=== PATIENT | male | born 1950 | race Caucasian/White ===

== ENCOUNTER 2017-01-18 19:01 | Inpatient (IN) ==
--- NOTE | 2017-01-18 19:12 | Emergency Department Note ---
Disposition Clinical Impression: Obesity (BMI 30-39.9), History of pulmonary embolism, History of DVT (deep vein thrombosis), Diabetes, Chest pain, Frail elderly, Congestive heart failure , Pleural effusion, Peripheral edema, Elevated d-dimer, Elevated INR, Leukopenia Disposition: Admitted As Inpatient Referrals: Paulina Morris CNP [Primary Care Provider] - General Adult HPI - General Stated complaint: Chest pain, WILL Time Seen by Provider: 01/18/17 19:11 - History of Present Illness HPI Narrative: 66-year-old male reports emergency department complaining of intermittent chest pain in the mid sternum radiates somewhat to the left over the last 3-4 days. The patient has no known history of coronary disease, he has had negative stress test in the past but never had a heart catheter. The patient has a history of esophageal cancer with resection remotely, as well as DVT and PE. The patient takes Coumadin on a regular basis. There is no history of bleeding or trauma. No coughing up blood or acute leg swelling or pain. The patient states he wears oxygen regularly, his reports he has been diagnosed with COPD. There is no history of cough and general runny nose or pain or sore throat. No abdominal pain vomiting or diarrhea. There is no history of tearing or acute back pain or syncope. The patient has had no rash on the chest or injury. The patient has not had a cholecystectomy but used to have reflux. He denies any reflux symptoms. The patient is worried about his heart. The pain is recurrent and is dull. There is no history of bleeding. - Related Data Home Medications Medication Instructions Recorded Confirmed Ascorbate Calcium [Vitamin C] 1,000 mg PO DAILY 09/19/16 09/19/16 Aspirin [Ecotrin] 325 mg PO DAILY 09/19/16 09/19/16 Cholecalciferol (D-3) [Vitamin D] 2,000 unit PO DAILY 09/19/16 09/19/16 Furosemide [Lasix] 40 mg PO TID 09/19/16 09/19/16 Gabapentin 600 mg PO HS 09/19/16 09/19/16 Gabapentin 900 mg PO BID 09/19/16 09/19/16 Garlic [Garlique] 2,000 mcg PO TID 09/19/16 09/19/16 Glimepiride 4 mg PO TID 09/19/16 09/19/16 Glucosamn/[place]n/C/Mn/[place] 1 tab PO TID 09/19/16 09/19/16 [Cvs Glucosamine Chondroit Cplt] Multivit-Min/FA/Lycopen/Lutein 1 tab PO DAILY 09/19/16 09/19/16 [Men 50 Plus Multivitamin Tab] Pantoprazole Sodium [Protonix] 40 mg PO DAILY 09/19/16 09/19/16 Potassium Chloride [Klor-Con 10 meq PO DAILY 09/19/16 09/19/16 Sprinkle] Pravastatin Sodium 40 mg PO DAILY 09/19/16 09/19/16 Ranitidine HCl [Acid [employer]] 150 mg PO HS 09/19/16 09/19/16 Vitamin A 8,000 unit PO DAILY 09/19/16 09/19/16 Warfarin [Coumadin] 5 mg PO DAILY 09/19/16 09/19/16 Previous Rx's Medication Instructions Recorded Doxycycline 100 mg PO BID #6 capsule 09/21/16 Oxygen 1 each .ROUTE AD 30 Days 09/21/16 Allergies Allergy/AdvReac Type Severity Reaction Status Date / Time penicillin G Allergy Anaphylaxis Verified 09/19/16 14:33 All systems ED: reviewed and negative except as stated. Past Medical History - Past Medical History Medical history: Reports: cancer, CHF, diabetes Surgical history: Reports: IVC Filter, orthopedic, other (spine), other ( esophageal ) Psychiatric history: Reports: no psych history - Social History Smoking Status: Former smoker Smokeless Tobacco Status: No Alcohol use: Reports: none Drug use: Reports: none Physical Exam - General Limitations: no limitations General appearance: alert, in no apparent distress - Head Head exam: atraumatic, normocephalic, normal inspection - Eye Eye exam: Present: normal appearance, PERRL, EOMI - ENT ENT exam: normal exam, normal oropharynx, mucous membranes moist, TM's normal bilaterally, normal external ear exam - Neck Neck exam: Present: normal inspection, full ROM, trachea midline. Absent: tenderness - Chest Chest inspection: Present: symmetric chest wall rise. Absent: tenderness - Respiratory Respiratory exam: Present: normal lung sounds bilaterally. Absent: respiratory distress - Cardiovascular Cardiovascular exam: Present: regular rate, normal rhythm, normal heart sounds - Abdominal Exam Abdominal exam: Present: soft, Non-Tender, normal bowel sounds. Absent: tenderness, distention, guarding, rebound, rigidity, pulsatile mass - Extremities Exam Extremities exam: Present: normal inspection, full ROM, normal capillary refill , pedal edema, joint swelling. Absent: tenderness, calf tenderness - Expanded Lower Extremity Exam Lower leg exam: Absent: Homans' sign Neurovascular/Tendon exam: Present: normal capillary refill. Absent: motor deficit, sensory deficit, tendon deficit, extremity cold to touch, pallor - Back Exam Back exam: Present: normal inspection, full ROM. Absent: tenderness, CVA tenderness (R), CVA tenderness (L), vertebral tenderness - Neurological Exam Neurological exam: Present: alert, oriented X3, CN II-XII intact. Absent: motor sensory deficit - Psychiatric Psychiatric exam: Present: normal affect, normal mood - Skin Skin exam: Present: warm, dry, intact, normal color. Absent: rash, diaphoresis , erythema, pallor, mottled Course Vital Signs Temperature 98.1 F 01/18/17 19:45 Pulse Rate 73 01/18/17 19:45 Respiratory Rate 15 01/18/17 19:45 Blood Pressure 146/75 01/18/17 19:45 O2 Sat by Pulse Oximetry 97 01/18/17 19:45 Temperature 98.1 F 01/18/17 19:45 Pulse Rate 73 01/18/17 19:45 Respiratory Rate 15 01/18/17 19:45 Blood Pressure 146/75 01/18/17 19:45 O2 Sat by Pulse Oximetry 99 01/18/17 19:49 Oxygen Delivery Oxygen Delivery Nasal Cannula Medical Decision Making - [facility] Narrative Medical decision making narrative: The patient is elderly, diabetic, and is experiencing chest pain. He also has a history of esophageal malignancy and PE. The patient is anticoagulated. He does have an elevated d-dimer. He was given aspirin in the ED. The patient has bilateral pleural effusions and appears to be in CHF. Based on the patient' s chest pain, bilateral pleural effusions, lower extremity edema, history of malignancy, diabetes, age, apparent acute CHF, I started the appropriate to admit the patient in the hospital. I discussed the case with the hospitalist on -call who is accepted the patient to their care. We both feel be reasonable to CT the patient's chest for further evaluation regarding potential failed Coumadin therapy and thrombus or other acute intrathoracic pathology and to define the pulmonary findings on chest x-ray. Do not suspect pneumonitis or sepsis at this time. The patient is currently stable pending admission. - Lab Data Lab results reviewed: Yes I reviewed the patient's lab results. Result diagrams: 01/18/17 20:41 01/18/17 20:41 Lab Results 01/18/17 01/18/17 01/18/17 Range/Units 20:41 20:41 20:41 WBC (4.3-11.1) K/mcL RBC (4.19-5.50) M/mcL Hgb (12.9-16.9) g/dL Hct (37.5-50.1) % MCV (83.0-100.0) fL MCH (28.0-33.3) pg MCHC (31.6-35.5) g/dL RDW (11.5-14.5) % Plt Count (140-400) K/mcL MPV (9.4-12.4) fL Immature Gran % (0-4) % Seg Neutrophils % % Lymphocytes % % Monocytes % % Eosinophils % % Basophils % % Neutrophils # (1.6-8.9) K/mcL Lymphocytes # (0.6-4.6) K/mcL Monocytes # (0.0-1.3) K/mcL Eosinophils # (0.0-0.6) K/mcL Basophils # (0.0-0.2) K/mcL PT 33.6 H (9.4-12.1) Seconds INR 3.0 APTT 50.3 H (26.0-36.0) Seconds D-Dimer 914 H (0-500) ng/mLFEU Sodium (136-145) mEq/L Potassium (3.5-4.5) mEq/L Chloride (98-109) mEq/L Carbon Dioxide (19-29) mEq/L BUN (8-26) mg/dL Creatinine (0.72-1.25) mg/dL Est GFR ( Amer) (> 60) Est GFR (Non-Af Amer) (> 60) BUN/Creatinine Ratio (6-26) Glucose (70-99) mg/dL Calculated Osmolality (280-300) Lactic Acid 0.5 (0.5-2.2) mmol/L Calcium (8.6-10.8) mg/dL Total Bilirubin 0.5 (0.2-1.2) mg/dL Direct Bilirubin 0.3 (0.0-0.5) mg/dL Indirect Bilirubin 0.2 (0.0-1.2) mg/dL AST 13 (5-34) Units/L ALT 10 (0-55) Units/L Alkaline Phosphatase 69 (38-126) Units/L Troponin I (0-0.03) ng/mL C-Reactive Protein 139 H (Less than 5) mg/L B-Natriuretic Peptide (0-100) pg/mL Serum Total Protein 6.2 (6.0-8.3) g/dL Albumin 2.4 L (3.5-5.0) g/dL Globulin 3.8 H (2.4-3.5) g/dL Albumin/Globulin Ratio 0.6 L (1.1-2.2) Lipase 27 (8-78) Units/L 01/18/17 01/18/17 01/18/17 Range/Units 20:41 20:41 20:41 WBC 3.7 L (4.3-11.1) K/mcL RBC 4.86 (4.19-5.50) M/mcL Hgb 13.4 (12.9-16.9) g/dL Hct 42.4 (37.5-50.1) % MCV 87.2 (83.0-100.0) fL MCH 27.6 L (28.0-33.3) pg MCHC 31.6 (31.6-35.5) g/dL RDW 15.9 H (11.5-14.5) % Plt Count 169 (140-400) K/mcL MPV 10.2 (9.4-12.4) fL Immature Gran % 0.0 (0-4) % Seg Neutrophils % 76.2 % Lymphocytes % 8.4 % Monocytes % 7.8 % Eosinophils % 7.3 % Basophils % 0.3 % Neutrophils # 2.8 (1.6-8.9) K/mcL Lymphocytes # 0.3 L (0.6-4.6) K/mcL Monocytes # 0.3 (0.0-1.3) K/mcL Eosinophils # 0.3 (0.0-0.6) K/mcL Basophils # 0.0 (0.0-0.2) K/mcL PT (9.4-12.1) Seconds INR APTT (26.0-36.0) Seconds D-Dimer (0-500) ng/mLFEU Sodium 136 (136-145) mEq/L Potassium 4.5 (3.5-4.5) mEq/L Chloride 104 (98-109) mEq/L Carbon Dioxide 25 (19-29) mEq/L BUN 13 (8-26) mg/dL Creatinine 0.80 (0.72-1.25) mg/dL Est GFR ( Amer) > 60 (> 60) Est GFR (Non-Af Amer) > 60 (> 60) BUN/Creatinine Ratio 16 (6-26) Glucose 155 H (70-99) mg/dL Calculated Osmolality 285 (280-300) Lactic Acid (0.5-2.2) mmol/L Calcium 8.7 (8.6-10.8) mg/dL Total Bilirubin (0.2-1.2) mg/dL Direct Bilirubin (0.0-0.5) mg/dL Indirect Bilirubin (0.0-1.2) mg/dL AST (5-34) Units/L ALT (0-55) Units/L Alkaline Phosphatase (38-126) Units/L Troponin I (0-0.03) ng/mL C-Reactive Protein (Less than 5) mg/L B-Natriuretic Peptide 581 H (0-100) pg/mL Serum Total Protein (6.0-8.3) g/dL Albumin (3.5-5.0) g/dL Globulin (2.4-3.5) g/dL Albumin/Globulin Ratio (1.1-2.2) Lipase (8-78) Units/L 01/18/17 Range/Units 20:41 WBC (4.3-11.1) K/mcL RBC (4.19-5.50) M/mcL Hgb (12.9-16.9) g/dL Hct (37.5-50.1) % MCV (83.0-100.0) fL MCH (28.0-33.3) pg MCHC (31.6-35.5) g/dL RDW (11.5-14.5) % Plt Count (140-400) K/mcL MPV (9.4-12.4) fL Immature Gran % (0-4) % Seg Neutrophils % % Lymphocytes % % Monocytes % % Eosinophils % % Basophils % % Neutrophils # (1.6-8.9) K/mcL Lymphocytes # (0.6-4.6) K/mcL Monocytes # (0.0-1.3) K/mcL Eosinophils # (0.0-0.6) K/mcL Basophils # (0.0-0.2) K/mcL PT (9.4-12.1) Seconds INR APTT (26.0-36.0) Seconds D-Dimer (0-500) ng/mLFEU Sodium (136-145) mEq/L Potassium (3.5-4.5) mEq/L Chloride (98-109) mEq/L Carbon Dioxide (19-29) mEq/L BUN (8-26) mg/dL Creatinine (0.72-1.25) mg/dL Est GFR ( Amer) (> 60) Est GFR (Non-Af Amer) (> 60) BUN/Creatinine Ratio (6-26) Glucose (70-99) mg/dL Calculated Osmolality (280-300) Lactic Acid (0.5-2.2) mmol/L Calcium (8.6-10.8) mg/dL Total Bilirubin (0.2-1.2) mg/dL Direct Bilirubin (0.0-0.5) mg/dL Indirect Bilirubin (0.0-1.2) mg/dL AST (5-34) Units/L ALT (0-55) Units/L Alkaline Phosphatase (38-126) Units/L Troponin I 0.02 (0-0.03) ng/mL C-Reactive Protein (Less than 5) mg/L B-Natriuretic Peptide (0-100) pg/mL Serum Total Protein (6.0-8.3) g/dL Albumin (3.5-5.0) g/dL Globulin (2.4-3.5) g/dL Albumin/Globulin Ratio (1.1-2.2) Lipase (8-78) Units/L - Radiology Data Radiology results reviewed: Yes I reviewed the patient's radiology results.
[2017-01-18] MEDS ORDERED: Aspirin 325 MG TABLET PO ONE (19:25)
[2017-01-18 21:01] LABS: Basophils % 0.3 %; Eosinophils # 0.3 K/mcL (0.0-0.6); Eosinophils % 7.3 %; Hematocrit 42.4 % (37.5-50.1); Hemoglobin 13.4 g/dL (12.9-16.9); Lymphocytes # 0.3 K/mcL (0.6-4.6); Lymphocytes % 8.4 %; Mean Corpuscular HGB Conc 31.6 g/dL (31.6-35.5); Mean Corpuscular Hemoglobin 27.6 pg (28.0-33.3); Mean Corpuscular Volume 87.2 fL (83.0-100.0); Mean Platelet Volume 10.2 fL (9.4-12.4); Monocytes # 0.3 K/mcL (0.0-1.3); Monocytes % 7.8 %; Neutrophils # 2.8 K/mcL (1.6-8.9); Platelet Count 169 K/mcL (140-400); Red Blood Count 4.86 M/mcL (4.19-5.50); Red Cell Distribution Width 15.9 % (11.5-14.5); Segmented Neutrophils % 76.2 %
[2017-01-18 21:09] LABS: Prothrombin Time 33.6 Seconds (9.4-12.1)
[2017-01-18 21:12] LABS: Activated Partial Thrombo Time 50.3 Seconds (26.0-36.0)
[2017-01-18 21:14] LABS: BUN/Creatinine Ratio 16 (6-26); Blood Urea Nitrogen 13 mg/dL (8-26); Calcium 8.7 mg/dL (8.6-10.8); Carbon Dioxide 25 mEq/L (19-29); Chloride 104 mEq/L (98-109); Glucose 155 mg/dL (70-99); Osmolality,Calculated 285 (280-300); Potassium 4.5 mEq/L (3.5-4.5); Sodium 136 mEq/L (136-145); eGFR For African Americans > 60 (> 60); eGFR For Non-African Americans > 60 (> 60)
[2017-01-18 21:15] LABS: Albumin 2.4 g/dL (3.5-5.0); Albumin/Globulin Ratio 0.6 (1.1-2.2); Bilirubin,Direct 0.3 mg/dL (0.0-0.5); Bilirubin,Indirect 0.2 mg/dL (0.0-1.2); Bilirubin,Total 0.5 mg/dL (0.2-1.2); Globulin 3.8 g/dL (2.4-3.5); Total Protein 6.2 g/dL (6.0-8.3)
[2017-01-18] MEDS ORDERED: Acetaminophen 325 MG TABLET PO PRN (22:44)
[2017-01-18] MEDS ORDERED: Naloxone 0.4 MG/ML INJ IVP PRN (22:44)
[2017-01-18] MEDS ORDERED: Ondansetron 4 MG/2 ML VIAL IVP PRN (22:44)
[2017-01-18] MEDS ORDERED: Dextrose Gel 15 GM PO PRN ×2 (23:47)
[2017-01-18] MEDS ORDERED: *HR* Dextrose 50 % in Water (Syg) 50 ML SYRINGE IVP PRN (23:47)
[2017-01-18] MEDS ORDERED: D5% in Water 1,000 ML IVC PRN (23:47)
--- NOTE | 2017-01-18 23:47 | Internal Med History&Physical ---
<Analilia Garcia - Last Filed: 01/19/17 00:10> Date of Encounter: 01/19/17 Time of Encounter: 23:46 Assessment and Plan (1) Acute exacerbation of CHF (congestive heart failure) Current visit: Yes Status: Acute 1 patient's last echo September 2016 EF 65% with moderate diastolic dysfunction moderate mitral stenosis. Patient has not been taking his Lasix for the past 2 weeks. He has lower extremity edema shortness of breath requiring oxygen supplementation chest x-ray indicative of pulmonary edema. We will give IV Lasix 1 now and repeat in a.m. 2 we will monitor intake and output daily weights 3 fluid restrictions 1500 mL's 4 low sodium diet Qualifiers: Congestive heart failure type: diastolic Qualified Code(s): I50.33 - Acute on chronic diastolic (congestive) heart failure (2) Chest pain Current visit: Yes Status: Acute 1 patient has been experiencing intermittent chest pain for the past week. I suspect related to patient's CHF. We will cycle cardiac troponins 2 continuous cardiac monitoring 3 nitroglycerin as needed for chest pain 4 oxygen as needed 5 consult cardiology as needed have patient follow-up as outpatient 6 continue with aspirin and statin beta rhoda Qualifiers: Chest pain type: unspecified Qualified Code(s): R07.9 - Chest pain, unspecified (3) Diabetes Current visit: Yes Status: Acute 1 patient's on oral antidiabetics at home will hold for now Accu-Cheks before meals at bedtime for sinus scale insulin goal is to maintain postprandial less than 180 2 diabetic diet Qualifiers: Diabetes mellitus type: type 2 Diabetes mellitus complication status: without complication Diabetes mellitus senior living insulin use: without senior living use Qualified Code(s): E11.9 - Type 2 diabetes mellitus without complications (4) History of pulmonary embolism Current visit: Yes Status: Acute 1 patient has history of pulmonary emboli as well as DVT we will continue with Coumadin monitor INR daily bolus to maintain INR 2-3 (5) DVT prophylaxis Current visit: Yes Status: Acute 1 patient is on Coumadin he has a past history of DVT/PE as well as hx malignancy which places him at high risk for DVT development Internal Medicine - H&P: HPI Chief complaint: CP Admitted From: Emergency Dept Plans for Post Hospital Care: Home History of present illness: Mr. Garcia is a 66 year old male past medical history of pulmonary embolism and DVT CHF diabetes esophageal cancer. Patient has been experiencing intermittent dull chest pain midsternally nonradiating over the past week. He denies any associated symptoms of shortness of breath nausea vomiting or lightheadedness diaphoresis Pain is exacerbated by deep breathing and has been relieved with nitroglycerin. He was seen at [facility] on Monday had a workup in the ER which was negative. He did have a cardiac stress in 2013 which was negative. He also has a history of esophageal cancer undergoing radiation with esophagotomy in 2013. He has a history of DVT and PE. He is on Coumadin which he takes regular basis and monitors his INR. He does wear oxygen at home 2 L nasal cannula as needed however recently he has required continuous use due to increasing shortness of breath. He denies any fever chills nausea vomiting or diarrhea. He denies any recent weight loss or weight gain he states he does not have any swelling in his lower extremities however he wraps his legs with Nick bandages daily which he states decreases his swelling. He presented to the ER but complaints. According to ER records lab work revealed BNP of 581 CRP 139 d-dimer 914 INR is 3. Troponin was negative. Chest x-ray suggestive of pulmonary edema possible CHF. Due to the patient's past history of PE CTA was obtained which was negative for PE however did reveal some slight pleural effusion as well as O pace of these which could represent pulmonary edema versus pneumonia. Patient has been referred for further evaluation. Presently on exam patient does appear to be in some mild respiratory distress. He has conversational dyspnea oxygen saturation drops down to 8788 on exertion. Upon auscultation the patient has scattered crackles bilaterally heart sounds S1-S2 with no rub murmur gallops or clicks noted. He has lower extremity +1 edema bilaterally. 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 He is hemodynamically stable at this time. I reviewed this case with who agrees with plan Past Med Surg Social Fam HX - Past Medical History Medical history: cancer, CHF, diabetes Psychiatric history: no psych history - Past Surgical History Surgical History: IVC Filter, orthopedic, other (spine), other (esophageal ) - Social History Smoking Status: Former smoker Smokeless Tobacco Status: No Alcohol use: none Drug use: none - Family History Mother Hx Family Cardiac Disorders: Yes Internal Medicine - H&P: Meds Ascorbate Calcium [Vitamin C] 1,000 mg PO DAILY 09/19/16 [History] Aspirin [Ecotrin] 325 mg PO DAILY 09/19/16 [History] Cholecalciferol (D-3) [Vitamin D] 2,000 unit PO DAILY 09/19/16 [History] Gabapentin 600 mg PO QID 09/19/16 [History] Garlic [Garlique] 2,000 mcg PO TID 09/19/16 [History] Glimepiride 4 mg PO TID 09/19/16 [History] Glucosamn/Cond[place]n/C/Mn/[place] [Cvs Glucosamine Chondroit Cplt] 1 tab PO TID 02/28 [History] Multivit-Min/FA/Lycopen/Lutein [Men 50 Plus Multivitamin Tab] 1 tab PO DAILY 02/28 [History] Pantoprazole Sodium [Protonix] 40 mg PO DAILY 09/19/16 [History] Potassium Chloride [Klor-Con Sprinkle] 10 meq PO DAILY 09/19/16 [History] Pravastatin Sodium 40 mg PO HS 09/19/16 [History] Ranitidine HCl [Acid [employer]] 300 mg PO HS 09/19/16 [History] Vitamin A 8,000 unit PO DAILY 09/19/16 [History] Oxygen 3 l NS AD 01/18/17 [History] Allergies penicillin G Allergy (Verified 09/19/16 14:33) Anaphylaxis All Systems PM: A 10-system review of systems was performed and is negative for pertinent findings except as documented above in the HPI. - Constitutional Constitutional: no chills, no fever(s), no night sweats - Cardiovascular Cardiovascular ROS IM: chest pain, dyspnea on exertion - Respiratory Respiratory: dyspnea on exertion, wheezing - Gastrointestinal Gastrointestinal: no abdominal pain, no diarrhea, no hematemesis, no hematochezia, no melena, no nausea, no vomiting - Musculoskeletal Musculoskeletal ROS IM: no numbness, no tingling - Integumentary Integumentary IM: no rash, no unusual bruising - Neurological Neurological ROS: no confusion, no convulsions, no focal weakness, no numbness, no tingling, no tremor(s) - Hematologic/Lymphatic Hematologic/Lymphatic: no easy bruising - Constitutional Vitals: Temp Pulse Resp BP Pulse Ox 98 F 77 16 146/75 95 01/18/17 23:04 01/18/17 21:53 01/18/17 23:04 01/18/17 23:04 01/18/17 21:53 General appearance: Present: A&O X 3, answers questions appropriately - Head Head exam: Present: atraumatic, normocephalic - Eye Eye exam: Present: PERRL, conjuntiva pink, sclera anicteric Pupils: Present: PERRL - Respiratory Respiratory exam: Absent: accessory muscle use, rales, rhonchi, wheezes Additional comments: Scattered crackles bilaterally conversational dyspnea - Cardiovascular Cardiovascular exam: Present: RRR, +S1, +S2. Absent: diastolic murmur, gallop, rubs, systolic murmur - GI/Abdominal GI/Abdominal exam: Present: normal bowel sounds, soft, no peritoneal signs. Absent: distended, tenderness - Extremities Exam Extremities exam: Present: pedal edema, warm, radial pulses palpable and symetrical. Absent: calf tenderness, cyanotic - Neurological Exam Neurological exam: Present: CN II-XII intact, oriented X3, no focal deficits. Absent: pronater drift, facial droop, speech deficit - Skin Skin exam: Present: dry, intact Internal Med - H&P Results - Labs CBC & Chem 7: 01/18/17 20:41 01/18/17 20:41 - EKG Data EKG shows normal: sinus rhythm - EKG Data Prior EKG available for review: yes When compared to previous EKG: there is no significant change EKG comments: 01/19/17 00:02 Sinus rhythm with right bundle branch block no change from previous EKG. Reviewed with - Diagnostic Studies Other Images Additional comments: Chest X-Ray 01/18/17 19:14 IMPRESSION: Findings suggest pulmonary edema with bilateral pleural effusions possibly representing congestive heart failure D/ / Hesham Funk MD / Hesham Funk MD Interpreting Provider: Hesham Funk MD Chest CTA 01/18/17 21:37 IMPRESSION: 1. No evidence of pulmonary embolic disease. 2. Trace bilateral pleural effusions with peribronchial and patchy ground-glass opacifications throughout the lungs. The findings are nonspecific but could be related to pulmonary edema or infection. 3. Progression of mediastinal adenopathy. Although worrisome for metastatic adenopathy, reactive adenopathy is not excluded. Close follow-up recommended. 4. Enlarged main pulmonary artery which can be seen with pulmonary hypertension. D/ : / 01/18/2017 22:49:47 Los Chase MD / leonardo Interpreting Provider: Los Chase MD <Jt Mehta - Last Filed: 01/19/17 01:48> Date of Encounter: 01/19/17 - Constitutional Vitals: Temp Pulse Resp BP Pulse Ox 98.4 F 87 20 146/66 92 01/19/17 00:41 01/19/17 00:41 01/19/17 00:41 01/19/17 00:41 01/19/17 00:41 General appearance: Present: A&O X 3, no acute distress - Head Head exam: Present: atraumatic, normal inspection - Neck Neck exam general surgery: Present: full ROM, normal inspection, supple. Absent : tenderness - Expanded Neck Exam Neck exam: Absent: carotid bruit - Respiratory Respiratory exam: Present: rales. Absent: chest wall tenderness, respiratory distress, rhonchi, wheezes - Cardiovascular Cardiovascular exam: Present: RRR, +S1, +S2. Absent: systolic murmur - GI/Abdominal GI/Abdominal exam: Present: soft. Absent: tenderness - Extremities Exam Extremities exam: Present: pedal edema. Absent: calf tenderness Internal Med - H&P Results - Labs CBC & Chem 7: 01/18/17 20:41 01/18/17 20:41 - EKG Data -: EKG Interpreted by Myself EKG shows normal: sinus rhythm - EKG Data When compared to previous EKG: there is no significant change - Diagnostic Studies Chest x-ray Status: image reviewed by me (suggests CHF) - Attending Attestation I discussed the patient [place], PMH, ROS, lab data, and exam findings with Analilia Garcia CNP. I then saw and examined patient independently as well. On exam and history, he has findings consistent with CHF. 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 He was taking Lasix TID. He has no PE on CTA. He follows with his oncologist every three months in [place]. He takes his Coumadin and monitors his INR closely with his PCP. However, he does not know the current dose of Coumadin he is taking, and it is not listed in his medication reconciliation. I will start him on low dose and monitor INR closely. Other than my comments noted above and noted exam findings , I agree with Analilia's assessment and plan.
[2017-01-19] MEDS: Furosemide 20 MG/2 ML VIAL IVP SCH ×3 (00:10→17:16)
[2017-01-19 03:56] LABS: INR 3.4; Prothrombin Time 38.2 Seconds (9.4-12.1)
[2017-01-19 04:00] LABS: BUN/Creatinine Ratio 15 (6-26); Blood Urea Nitrogen 12 mg/dL (8-26); Calcium 8.7 mg/dL (8.6-10.8); Carbon Dioxide 23 mEq/L (19-29); Chloride 102 mEq/L (98-109); Glucose 128 mg/dL (70-99); Osmolality,Calculated 285 (280-300); Potassium 4.3 mEq/L (3.5-4.5); Sodium 137 mEq/L (136-145); eGFR For African Americans > 60 (> 60); eGFR For Non-African Americans > 60 (> 60)
[2017-01-19] MEDS: Insulin LISPRO 300 UNITS/3 ML VIAL SQ SCH ×4 (08:40→21:15)
[2017-01-19] MEDS: Ascorbic Acid 500 MG TABLET PO SCH (08:40)
[2017-01-19] MEDS: Gabapentin 300 MG CAPSULE PO SCH ×4 (08:41→21:18)
[2017-01-19] MEDS: Aspirin Enteric Coated 325 MG Tablet PO SCH (08:41)
[2017-01-19] MEDS: Cholecalciferol (D-3) 1,000 UNIT TABLET PO SCH (08:41)
--- NOTE | 2017-01-19 08:46 | Internal Med Progress Note ---
Date of Encounter: 01/19/17 Time of Encounter: 08:43 - Assessment and plan (1) Congestive heart failure Status: Acute Assessment and plan: Patient has known history of diastolic CHF and presents with worsening hypoxia, exertional dyspnea and pedal edema. We will increase dose of IV Lasix twice daily and continue fluid restriction, daily weights and strict intake/urine output monitoring. Continue supportive care and supplemental oxygen as needed. Patient is noted to be on home oxygen at 2 L/m via nasal cannula. Patient also reports intermittent transient episodes of retrosternal chest pain with relief from nitroglycerin. Telemetry and EKG show no changes so far, serial troponins are negative for ACS. Continue when necessary transdermal nitroglycerin. We will follow up echocardiogram and consult cardiology for further recommendations. Qualifiers: Congestive heart failure type: diastolic Congestive heart failure chronicity: acute on chronic Qualified Code(s): I50.33 - Acute on chronic diastolic (congestive) heart failure (2) Esophageal cancer Status: Chronic Assessment and plan: Follows with oncology as outpatient. Underwent surgery and radiation. Qualifiers: Malignant neoplasm of esophagus location: unspecified location Qualified Code(s): C15.9 - Malignant neoplasm of esophagus, unspecified (3) Obesity Status: Chronic Qualifiers: Obesity type: due to excess calories Obesity severity: non-morbid Qualified Code(s): E66.09 - Other obesity due to excess calories (4) Diabetes Status: Chronic Assessment and plan: Continue Accu-Chek blood glucose monitoring with sliding scale insulin. Diabetic diet. Blood sugars noted to be well controlled. 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 INR is noted to be 3.4, will hold Coumadin tonight. (7) History of pulmonary embolism Status: Chronic - Subjective Interval history: Improving shortness of breath. Has been having intermittent retrosternal chest pain, not at this time. No nausea, vomiting, leg swelling. Patient reports being noncompliant with his Lasix as he feels it is a high dose and is making him urinate too much. - Constitutional Vitals: Temp Pulse Resp BP Pulse Ox 98.7 F 78 16 126/70 95 01/19/17 07:00 01/19/17 07:00 01/19/17 07:00 01/19/17 07:00 01/19/17 07:00 General appearance: Present: A&O X 3, obese, answers questions appropriately - Respiratory Respiratory exam: Present: rales (Bibasal crackles, inspiratory). Absent: accessory muscle use, rhonchi, wheezes - Cardiovascular Cardiovascular exam: Present: RRR, +S1, +S2. Absent: diastolic murmur, gallop, rubs, systolic murmur - GI/Abdominal GI/Abdominal exam: Present: normal bowel sounds, soft (obese), no peritoneal signs. Absent: distended, tenderness - Extremities Exam Extremities exam: Present: normal inspection (B/L anterior leg stasis dermatitis ), warm, radial pulses palpable and symetrical. Absent: calf tenderness, cyanotic, pedal edema Internal Medicine: Result - Labs CBC & Chem 7: 01/18/17 20:41 01/21/17 05:19 Labs: BMP 01/19/17 03:44 Sodium 137 Potassium 4.3 Chloride 102 Carbon Dioxide 23 BUN 12 Creatinine 0.82 Glucose 128 H Calcium 8.7 Cardiac Enzymes 01/19/17 Range/Units 03:44 Troponin I 0.03 (0-0.03) ng/mL - ABG Interpretation ABG results: PT/INR, D-dimer PT 38.2 Seconds (9.4-12.1) H 01/19/17 03:44 D-Dimer 914 ng/mLFEU (0-500) H 01/18/17 20:41 Consult Discharge Plan - Plan Referrals: Paulina Morris CNP [Primary Care Provider] - (Web request 01/18/17) Prescriptions: Nitroglycerin 0.4 mg SL Q5MIN PRN #30 tab.subl PRN Reason: Chest Pain Ipratropium/Albuterol Neb [Duoneb] 3 ml IH [id number] PRN 30 Days PRN Reason: wheezing Furosemide [Lasix] 20 mg PO BIDDIURETIC #60 tablet Isosorbide MONOnitrate (24 HR) [Imdur] 30 mg PO DAILY #30 tab.er.24h Metoprolol XL (24 HR) Succ [Toprol Xl] 25 mg PO DAILY #30 tab.er.24h
[2017-01-19] MEDS ORDERED: VITAMIN A 8,000 UNITS PO SCH (09:00)
[2017-01-19] MEDS ORDERED: Furosemide 20 MG/2 ML VIAL IVP SCH (09:00)
[2017-01-19] MEDS ORDERED: GARLIQUE PO SCH (09:00)
--- NOTE | 2017-01-19 13:32 | Electrocardiograph Report ---
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
--- NOTE | 2017-01-19 15:02 | Cardiology Consult Note ---
Date of Encounter: 01/19/17 Time of Encounter: 14:30 Assessment and Plan (1) Acute exacerbation of CHF (congestive heart failure) Current Visit: Yes Status: Acute Patient admits that he abruptly stopped taking Lasix 40mg TID Currently patient's fluid status is -950mL Most recent ECHO 09/30 LVEF 65%, mild concentric LVH, moderate LV diastolic dysfunction, normal RV structure and function, moderate-severely dilated LA, moderate-severe mitral annular calcification, moderate mitral stenosis, mean gradient = 7mmHg, mild pulmonary HTN, estimated RSVP = 42mmHg CXR and CTA with evidence of pulmonary edema Plan: Agree with treatment per primary team Continue Lasix 20mg IV q12, fluid restriction, daily weight, low-salt diet Qualifiers: Congestive heart failure type: diastolic Qualified Code(s): I50.33 - Acute on chronic diastolic (congestive) heart failure (2) Chest pain Current Visit: Yes Status: Acute Patient presents with intermittent chest pain x 4 days I suspect chest pain is related to patient's CHF However, pain was relieved by nitroglycerin Troponins 0.02, 0.03, will continue to follow EKG NSR with partial RBBB and no evidence of ischemia EKG this afternoon during episode of chest pain NSR CTA demonstrated distention of gastric pull-through with retained food products Consider investigating post-surgical gastric distention as complicated chest pain picture Continue SL nitroglycerin as needed for chest pain Consider morphine as needed for chest pain Continue with aspirin, statin Qualifiers: Chest pain type: unspecified Qualified Code(s): R07.9 - Chest pain, unspecified Discussion w patient/family: The assessment and plan as outlined above was discussed with the patient and/or family members who expressed understanding and agreement. All questions were answered. Thank you for involving us in the care of your patient. Please call with any questions. History of Present Illness Consult date: 01/19/17 Requesting physician: Analy James Consult reason: CHF, chest pain Chief complaint: Chest pain History of present illness: Mr. Garcia is a 66 year old male with past medical history significant for CHF, type 2 DM, HTN, HLD, obesity esophageal cancer, DVT/PE, severe lumbar stenosis who presented to [facility] one day ago with complaint of lower sternal/epigastric chest pain. Pain is rated 3/10 at this time and is described as "thightness". Patient states that he has never had this type of chest pain before. Pain was relieved by nitroglycerin. Pain is exacerbated by nothing. Chest pain is associated with increased dyspnea. He has increased dyspnea on exertion. At home, patient uses 2L of O2 intermittently, but has required increase of O2 to 3L over the past week. Patient admits that he stopped taking Lasix 40mg po TID abruptly due to not wanting to urinate on a regular basis. Patient admits recent chills. He denies fever, diaphoresis, orthopnea, peripheral edema, heartburn, nausea, vomiting. Past Med Surg Social Fam HX - Past Medical History Medical history: cancer, CHF, diabetes, pulmonary embolus Psychiatric history: no psych history - Past Surgical History Surgical History: IVC Filter, orthopedic, other, vasectomy, other - Social History Smoking Status: Former smoker Smokeless Tobacco Status: No Alcohol use: none Drug use: none - Family History Mother Living Status: Age at : 80 Cause of : Stroke Hx Family Cardiac Disorders: Yes (Upper aorta valve replaced,) Hx Family Respiratory Disorders: No Hx Family Cancer: No Hx Family GI Disorders: No Hx Family Genitourinary Disorders: No Hx Family Endocrine Disorder: No Hx Family Musculoskeletal Disorders: No Hx Family Neuromuscular Disorders: No Hx Family Neurologic Disorders: No Hx Family HEENT Disorders: No Hx Family Autoimmune Disorders: No Hx Family Reproductive Disorders: No Hx Family Psychosocial Disorders: No Hx Family Medical Disorders: No Medications and Allergies Ascorbate Calcium [Vitamin C] 1,000 mg PO DAILY 09/19/16 [History] Aspirin [Ecotrin] 325 mg PO DAILY 09/19/16 [History] Cholecalciferol (D-3) [Vitamin D] 2,000 unit PO DAILY 09/19/16 [History] Gabapentin 600 mg PO QID 09/19/16 [History] Garlic [Garlique] 2,000 mcg PO TID 09/19/16 [History] Glimepiride 4 mg PO TID 09/19/16 [History] Glucosamn/Condroitn/C/Mn/[place] [Cvs Glucosamine Chondroit Cplt] 1 tab PO TID 02/28 [History] Multivit-Min/FA/Lycopen/Lutein [Men 50 Plus Multivitamin Tab] 1 tab PO DAILY 02/28 [History] Pantoprazole Sodium [Protonix] 40 mg PO DAILY 09/19/16 [History] Potassium Chloride [Klor-Con Sprinkle] 10 meq PO DAILY 09/19/16 [History] Pravastatin Sodium 40 mg PO HS 09/19/16 [History] Ranitidine HCl [Acid Materials Mgmt Tech] 300 mg PO HS 09/19/16 [History] Vitamin A 8,000 unit PO DAILY 09/19/16 [History] Oxygen 3 l NS AD 01/18/17 [History] Warfarin [Coumadin] 4 mg PO 1800 01/19/17 [History] Allergies penicillin G Allergy (Verified 09/19/16 14:33) Anaphylaxis All Systems Review: A 10-system review of systems was performed and is negative for pertinent findings except as documented above in the HPI. Physical Examination General: Conversant, No Apparent Distress HEENT: Atraumatic, Normocephaly, Mucus Membranes Moist Neck: No JVD, Normal carotid pulses Cardiac: Reg Rate and Rhythm, Normal S1 and S2, Other (Diastolic murmur to left sternum) Lungs: Other (Rales to bilateral lung bases) Neuro: Alert and responsive, No focal deficits noted Abdomen: Soft, Non-Tender Skin: Other (Violaceous hue to bilateral lower extremities suggestive of venous stasis dermatitis) Musculoskeletal: No Chest Wall Tenderness Extremities: No Clubbing, No Cyanosis, No Edema, Normal Pulses Results 01/18/17 20:41 01/19/17 03:44 Lab Results 01/19/17 01/19/17 01/19/17 03:44 03:44 03:44 INR 3.4 Sodium 137 Potassium 4.3 Chloride 102 Carbon Dioxide 23 BUN 12 Creatinine 0.82 Glucose 128 H Calcium 8.7 Troponin I 0.03 - Imaging and Cardiology Chest Xray: report reviewed Echo: report reviewed Other Results: CTA report reviewed - EKG Interpretation EKG results cardiology: personally reviewed, normal ECG, sinus rhythm Consult Discharge Plan - Plan Referrals: Paulina Morris CNP [Primary Care Provider] - (Web request 01/18/17)
[2017-01-19] MEDS: Nitroglycerin 1 INCH/GM PACKET TP SCH (17:17)
[2017-01-19] MEDS ORDERED: *HR* Warfarin 3 MG TABLET PO SCH (18:00)
[2017-01-19] MEDS ORDERED: Warfarin perPT PO PRN (18:00)
[2017-01-19] MEDS ORDERED: Famotidine 20 MG TABLET PO SCH (21:00)
[2017-01-20 04:03] LABS: INR 3.5; Prothrombin Time 39.8 Seconds (9.4-12.1)
[2017-01-20] MEDS: Nitroglycerin 1 INCH/GM PACKET TP SCH (06:42)
[2017-01-20] MEDS: Insulin LISPRO 300 UNITS/3 ML VIAL SQ SCH ×4 (08:21→22:13)
[2017-01-20] MEDS: Aspirin Enteric Coated 325 MG Tablet PO SCH (08:21)
[2017-01-20] MEDS: Gabapentin 300 MG CAPSULE PO SCH ×4 (08:22→20:30)
[2017-01-20] MEDS: Furosemide 20 MG/2 ML VIAL IVP SCH (08:22)
[2017-01-20] MEDS: Cholecalciferol (D-3) 1,000 UNIT TABLET PO SCH (08:22)
[2017-01-20] MEDS: Ascorbic Acid 500 MG TABLET PO SCH (08:22)
--- NOTE | 2017-01-20 08:44 | Cardiology Progress Note ---
Date of Encounter: 01/20/17 Time of Encounter: 08:20 Assessment and Plan (1) Chest pain Current Visit: Yes Status: Acute Patient continues to have paroxysm's of of unprovoked chest pain associated with increase from baseline dyspnea Symptoms may be secondary to CHF However, patient's pain is relieved with nitroglycerin Patient has considerable risk factors for cardiac ischemia including age, gender , HTN, HLD, DM2, smoking history Recommend Ragadeneson stress tomorrow Cardiac/diabetic diet NPO after midnight Hold nitrates, caffeine Continue with aspirin, statin Qualifiers: Chest pain type: unspecified Qualified Code(s): R07.9 - Chest pain, unspecified (2) Acute exacerbation of CHF (congestive heart failure) Current Visit: Yes Status: Acute Patient improved today with diuresis Currently patient's fluid status is -2.7L for this hospital stay Most recent ECHO 09/20/16 LVEF 65%, mild concentric LVH, moderate LV diastolic dysfunction, normal RV structure and function, moderate-severely dilated LA, moderate-severe mitral annular calcification, moderate mitral stenosis, mean gradient = 7mmHg, mild pulmonary HTN, estimated RSVP = 42mmHg CXR and CTA with evidence of pulmonary edema Plan: Continue Lasix 20mg IV q12, fluid restriction, daily weight, low-salt diet Patient will need close outpatient follow up to ensure compliance with medications Qualifiers: Congestive heart failure type: diastolic Qualified Code(s): I50.33 - Acute on chronic diastolic (congestive) heart failure Discussion w patient/family: The assessment and plan as outlined above was discussed with the patient and/or family members who expressed understanding and agreement. All questions were answered. Thank you for involving us in the care of your patient. Please call with any questions. Subjective Principal diagnosis: CHF, chest pain Interval history: Patient resting comfortably and lying flat in bed at time of patient interview. No chest pain or dyspnea at this time. Objective Vital Signs, Last 4 Hours Temp Pulse Resp BP Pulse Ox 01/20/17 08:13 98.6 F 82 18 150/76 92 General: Conversant, No Apparent Distress HEENT: Atraumatic, Normocephaly, Mucus Membranes Moist Neck: No JVD, Normal carotid pulses Cardiac: Reg Rate and Rhythm, Normal S1 and S2, Other (Diastolic murmur) Lungs: Other (Minimal rales to bilateral lung bases) Neuro: Alert and responsive, No focal deficits noted Abdomen: Soft, Non-Tender Skin: Other (Dark violaceous to brown pigmentation to bilateral lower extremities with waxy scales) Musculoskeletal: No Chest Wall Tenderness Extremities: No Clubbing, No Cyanosis, No Edema, Normal Pulses Results 01/18/17 20:41 01/19/17 03:44 Lab Results 01/19/17 01/20/17 21:30 03:41 INR 3.5 Troponin I 0.03 - Imaging and Cardiology Chest Xray: report reviewed Echo: report reviewed - EKG Interpretation EKG results cardiology: personally reviewed, normal ECG, sinus rhythm ( Incomplete RBBB) Consult Discharge Plan - Plan Referrals: Paulina Morris CNP [Primary Care Provider] - (Web request 01/18/17)
--- NOTE | 2017-01-20 09:35 | ECHO - Doppler Report ---
Echocardiogram Name: Orville Garcia Date of Study: 01/19/2017 Date: 1950 Ht: 69.0 in Medical Record#: [id number] Age: 66 Wt: 214.0 lb Gender: Male BSA: 2.13 Order #: [id number] Location: [facility] Room #: 2A22 Reading Physician: Lily Barton DO Golf Course Manager: Adelina Hemphill Ordering Physician: Urban Albert DO,[facility] FASNC Primary Physician: Paulina Morris CNP Indications: Chest pain Impressions: LVEF 60%. There is evidence of moderate diastolic dysfunction of the left ventricle. Increased LV wall thickness. Normal right ventricular size and function. Mild mitral regurgitation. Mitral valve is suboptimally visualized. There is mild to moderate mitral stenosis by Doppler assessment (see below). Mild tricuspid regurgitation by Doppler which is underestimated. TR gradient 61 mmHg. IVC was not well visualized for RVSP. However, there is severe pulmonary hypertension by TR gradient. Left Ventricular Wall Motion: Rest Echo Findings The mid anterior septal, mid inferior lateral and basal inferior lateral magana were not visualized. All other wall segments showed normal motion. Findings: Study Quality * Technically sub-optimal due to body habitus. ECG Findings * Normal sinus rhythm. Left Atrium * Severely dilated left atrium. Aorta * Off-axis. Not well visualized. Tricuspid Valve * Normal tricuspid valve structure. * Mild tricuspid regurgitation by spectral doppler which may be underestimated. TR gradient 61 mmHg. Pulmonic Valve * Pulmonic valve is not well visualized. * No pulmonic stenosis. * No pulmonic regurgitation. Pulmonary Artery * Pulmonary artery not well visualized. Aortic Valve * Mildly calcified aortic valve leaflets. * Trileaflet aortic valve. * No aortic stenosis. Left Ventricle * Suboptimal PLAX images to measure LV wall thickness. Visually, there appears to be increased myocardial thickening. * Moderate left ventricular diastolic dysfunction. * LVEF 60%. Mitral Valve * Mitral valve not well visualized. * Moderate mitral annular calcification * Mild mitral regurgitation. * Mild to moderate mitral stenosis (MG 6 mmHg, P1/2t 107 ms, MVA 2cm2) Right Ventricle * Normal right ventricular structure and function. Right Atrium * Moderately dilated right atrium. Interatrial Septum * Interatrial septum not well evaluated. Pericardium * There is no pericardial effusion present. IVC * The IVC is not well evaluated. History Diabetes Years 30 Packs 3 Congestive Heart Failure 09/20/2016 a Previous Echo was performed. Measurements: BP: 129/ 73 2D Normal Values IVSd: 1.60 cm 0.6 - 1.0 cm LVIDd: 4.70 cm 3.7 - 5.6 cm LVPWd: 1.30 cm 0.6 - 1.1 cm LVIDs: 2.90 cm 1.5 - 3.6 cm AO: 2.90 cm < 4.0 cm LA: 4.40 cm 2.0 - 4.0cm %FS: 38.30 cm >25 % LA volume: 95 Mitral Valve Peak Velocity 2.55 m/sec Mean Velocity:1.41 m/sec Peak Grad:26.00 mmHg Mean Grad:9.67 mmHg Pressure Time:107.00 msec Valve Area:2.06 cm2 Peak E:1.93 m/sec Peak A:1.96 m/sec E/A Ratio:1 Peak E' Lat Zach:5.75 cm/s Peak E' Med Zach:4.78 cm/s E/E' Lat Ratio:33.6 E/E' Med Ratio:40.4 Tricuspid Valve TV Regurg Peak Grad: 61.00mmHg TV Regurg Peak Zach: 3.91m/sec Updated by Lily Barton on 01/20/2017 9:26:55 AM electronically signed on 01/20/2017 9:28:38 AM with status of Final Wall Motion Lai: 1=Normal, 2=Hypokinesis, 3=Akinesis, 4=Dyskinesis, 5=Aneurysmal, 6=Hyperkinetic, X=Not Visualized (Blank)=Missing
[2017-01-20] MEDS: Furosemide 20 MG TABLET PO SCH (16:25)
--- NOTE | 2017-01-20 16:50 | Electrocardiograph Report ---
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
--- NOTE | 2017-01-20 17:09 | Electrocardiograph Report ---
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
[2017-01-20] MEDS ORDERED: *HR* Warfarin 2 MG TABLET PO SCH (18:00)
[2017-01-20] MEDS ORDERED: Nitroglycerin 0.4 MG TAB.SUBL SL ONE (20:27)
[2017-01-20] MEDS: Nitroglycerin 0.4 MG TAB.SUBL SL PRN ×2 (20:32→22:40)
[2017-01-21 05:33] LABS: INR 3.2
[2017-01-21 05:39] LABS: BUN/Creatinine Ratio 24 (6-26); Blood Urea Nitrogen 21 mg/dL (8-26); Calcium 8.6 mg/dL (8.6-10.8); Carbon Dioxide 28 mEq/L (19-29); Chloride 103 mEq/L (98-109); Glucose 142 mg/dL (70-99); Osmolality,Calculated 291 (280-300); Potassium 4.3 mEq/L (3.5-4.5); Sodium 138 mEq/L (136-145); eGFR For African Americans > 60 (> 60); eGFR For Non-African Americans > 60 (> 60)
[2017-01-21] MEDS ORDERED: Regadenoson 0.4 MG/5 ML SYRINGE IVP ONE (06:25)
[2017-01-21] MEDS: Insulin LISPRO 300 UNITS/3 ML VIAL SQ SCH ×3 (07:43→17:04)
[2017-01-21] MEDS ORDERED: Metoprolol XL (24 HR) Succ 25 MG TAB.ER.24H PO SCH (09:00)
--- NOTE | 2017-01-21 09:35 | Cardiology Progress Note ---
Date of Encounter: 01/21/17 Time of Encounter: 09:00 Assessment and Plan (1) Chest pain Current Visit: Yes Status: Acute Typical/atypical chest pain symptoms. No ischemic ECG changes, troponin negative. No recent ischemic evaluation. Patient has considerable risk factors for cardiac ischemia including age, gender , HTN, HLD, DM2, smoking history Regadenoson nuclear stress results pending. Has been chest pain free overnight. TTE shows preserved LV function. Further recommendations pending stress test results. Qualifiers: Chest pain type: unspecified Qualified Code(s): R07.9 - Chest pain, unspecified (2) Congestive heart failure Current Visit: Yes Status: Chronic Acute on chronic diastolic CHF likely secondary to holding diuretics. He reports he stopped taking lasix for nearly two weeks because medication effects interfered with work. 24 I&O: -990 mL, cumulative -3265 mL. Continue current medical therapy including asa, betablocker, and diuretic. CHF teaching emphasized including Na/fluid restriction diet and daily weights. Qualifiers: Congestive heart failure type: diastolic Congestive heart failure chronicity: acute on chronic Qualified Code(s): I50.33 - Acute on chronic diastolic (congestive) heart failure (3) Mitral stenosis Current Visit: No Status: Chronic Hx of MS. TTE: mild-moderate MS with preserved LVEF. Continue medical therapy. Qualifiers: Cardiac valve disease etiology: etiology unspecified Qualified Code(s): I05.0 - Rheumatic mitral stenosis (4) History of DVT (deep vein thrombosis) Current Visit: Yes Status: Chronic Hx of DVT on Coumadin therapy. INR monitored by PCP. Discussion w patient/family: The assessment and plan as outlined above was discussed with the patient and/or family members who expressed understanding and agreement. All questions were answered. Thank you for involving us in the care of your patient. Please call with any questions. The patient will be discussed and reviewed with Dr. Albert; changes to be made accordingly. Subjective Principal diagnosis: CHF, chest pain Interval history: Seen and examined in the stress lab. He notes that he stopped taking oral lasix for nearly two weeks to inference with his job. Also reports had PNA the end of Nov. He reports dyspnea and bilateral lower extremity edema are improving. Objective Vital Signs, Last 4 Hours Temp Resp BP Pulse Ox 01/21/17 07:15 98.0 F 16 134/77 97 General: Conversant, No Apparent Distress HEENT: Atraumatic, Normocephaly Cardiac: Reg Rate and Rhythm, Normal S1 and S2 Lungs: Normal Breath Sounds Neuro: Alert and responsive Abdomen: Soft Skin: No rashes noted on visualized skin Extremities: Other (discoloration noted to BLE--dark brown/nj. Poor LE turgor. ) Results 01/18/17 20:41 01/21/17 05:19 Lab Results 01/21/17 01/21/17 05:19 05:19 INR 3.2 Sodium 138 Potassium 4.3 Chloride 103 Carbon Dioxide 28 BUN 21 Creatinine 0.86 Glucose 142 H Calcium 8.6 Active Medications Acetaminophen (Tylenol) 650 mg PO Q6HR PRN PRN Reason: Mild Pain (1-3) Stop: 07/20/17 22:45 Ascorbic Acid (Vitamin C) 1,000 mg PO DAILY [facility] Stop: 07/21/17 09:01 Last Admin: 01/20/17 08:22 Dose: 1,000 mg Aspirin (Aspirin Ec) 325 mg PO DAILY [facility] Stop: 07/21/17 09:01 Last Admin: 01/20/17 08:21 Dose: 325 mg Dextrose/Water (Dextrose 50% (Syg)) 25 ml IVP AD PRN PRN Reason: Hypoglycemia Stop: 07/20/17 23:48 Furosemide (Lasix) 20 mg PO BIDDIURETIC [facility] Stop: 07/22/17 17:01 Last Admin: 01/20/17 16:25 Dose: 20 mg Gabapentin (Neurontin) 600 mg PO QID [facility] Stop: 07/21/17 09:01 Last Admin: 01/20/17 20:30 Dose: 600 mg Metoprolol Succinate (Toprol Xl) 25 mg PO DAILY [facility] Stop: 07/23/17 09:01 Naloxone HCl (Narcan) 0.4 mg IVP Q2MIN PRN PRN Reason: Opioid Reversal Stop: 07/20/17 22:45 Nitroglycerin (Nitroglycerin) 0.5 inch TP Q6HNTG [facility] Stop: 07/21/17 15:46 Last Admin: 01/20/17 06:42 Dose: 0.5 inch Nitroglycerin (Nitroglycerin) 0.4 mg SL Q5MIN PRN PRN Reason: Chest Pain Stop: 07/22/17 20:21 Last Admin: 01/20/17 22:40 Dose: 0.4 mg Omeprazole (Prilosec) 20 mg PO BIDAC [facility] PRN Reason: Protocol Stop: 07/21/17 16:31 Last Admin: 01/20/17 16:25 Dose: 20 mg Ondansetron HCl (Zofran) 4 mg IVP Q8HR PRN PRN Reason: Nausea And Vomiting Stop: 07/20/17 22:45 Potassium Chloride (Potassium Chloride) 10 meq PO DAILY [facility] Stop: 07/21/17 09:01 Last Admin: 01/20/17 08:21 Dose: 10 meq Simvastatin (Zocor) 20 mg PO HS [facility] Stop: 07/21/17 21:01 Last Admin: 01/20/17 20:31 Dose: 20 mg Vitamin D (Vitamin D) 2,000 unit PO DAILY [facility] Stop: 07/21/17 09:01 Last Admin: 01/20/17 08:22 Dose: 2,000 unit Warfarin Sodium (Coumadin Perpt) 1 each PO DAILY@1800 PRN PRN Reason: SEE COMMENTS Stop: 07/21/17 18:01 - Imaging and Cardiology Chest Xray: report reviewed Stress Test: pending Echo: report reviewed Other Results: 12 hour tele: avg HR=78 SR. No significant event noted. - EKG Interpretation EKG results cardiology: personally reviewed Consult Discharge Plan - Plan Referrals: Paulina Morris CNP [Primary Care Provider] - (Web request 01/18/17)
[2017-01-21] MEDS: Gabapentin 300 MG CAPSULE PO SCH ×3 (10:37→17:05)
[2017-01-21] MEDS: Ascorbic Acid 500 MG TABLET PO SCH (10:37)
[2017-01-21] MEDS: Aspirin Enteric Coated 325 MG Tablet PO SCH (10:37)
[2017-01-21] MEDS: Cholecalciferol (D-3) 1,000 UNIT TABLET PO SCH (10:37)
[2017-01-21] MEDS: Furosemide 20 MG TABLET PO SCH ×2 (10:37→17:05)
[2017-01-21] MEDS ORDERED: Ipratropium/Albuterol Neb 3 ML IH PRN (11:55)
--- NOTE | 2017-01-21 14:04 | Nuclear Medicine Stress Report ---
Regadenoson Nuclear Stress Name: Orville Garcia Date of Study: 01/21/2017 Date: 1950 Ht: 69.0 in Medical Record#: [id number] Age: 66 Wt: 214.0 lb Gender: Male Order #: [id number] Location: [facility] Room: [facility] [place] Supervising Provider: Radha Crum CNP Reading Physician: Urban Albert DO, FACC [facility] Ordering Physician: Gayla James MD Primary Care Physician: Paulina Morris CNP Stress Technologist: Devin Ramos, SVP BUSINESS DEVELOPMENT, [facility] Commercial Green Building Architect: Yariel Nance Indications: Chest Pain Impression: Pharmacologic stress ECG is negative for ischemia at level of heart rate achieved. Gated EF = 73%. Perfusion imaging was negative for ischemia or infarct. History: Diabetes Hypercholesteremia Stress Test Summary: Stress Test Type: Pharmacologic Regadenoson 0.4mg/5ml given IV Baseline Information: Initial Heart Rate: 73 Blood Pressure: 114/64 Stress Information: Stress Time: 4 min 00 sec Test Terminated Due to (primary): As per protocol Maximum Blood Pressure: 110/62 Maximum Heart Rate: 82 Percent Maximum Heart Rate Achieved: 55 Double Product: 9240 METS Reached: 1 Symptoms: Shortness of breath Nuclear Summary: SPECT myocardial perfusion imaging using Tc99m Sestamibi given intravenously was performed at rest and following cardiac stress testing. The resting images were obtained following initial dose of 10.6 mCi. Following stress an additional dose of 34.5 mCi was given at peak exercise or 30 seconds post regadenoson infusion. Medication Given: Time Medication Dose Units Route Findings: Stress Note * Resting ECG demonstrated normal sinus rhythm. * No baseline arrhythmias were noted. * Pharmacologic stress ECG is negative for ischemia at level of heart rate achieved. * No arrhythmias were noted during stress. * Normal hemodynamic responses to pharmacologic stress. Study Quality * Study quality is average. Gated EF % * Gated EF = 73%. Left Ventricle * The left ventricle is not dilated. LVEDV = 102 mL. NORMALS * Normal wall motion. * Normal segmental perfusion in stress. * Normal Segmental Perfusion in rest. TID * No evidence of transient ischemic dilatation. TID ratio * TID ratio = 1.20. Lung Uptake * There is no evidence of increase lung uptake. Updated by Urban Albert DO, FACC, JUDY, FASSANIA on 01/21/2017 1:57:41 PM electronically signed on 01/21/2017 1:58:37 PM with status of Final
[2017-01-21] MEDS ORDERED: Isosorbide MONOnitrate (24 HR) 30 MG TAB.ER.24H PO SCH (15:30)
--- NOTE | 2017-01-21 16:27 | Discharge Summary ---
Date of Encounter: 01/21/17 Time of Encounter: 16:22 - Discharge Diagnosis (1) Congestive heart failure Priority: Primary Status: Acute Qualifiers: Congestive heart failure type: diastolic Congestive heart failure chronicity: acute on chronic Qualified Code(s): I50.33 - Acute on chronic diastolic (congestive) heart failure (2) Esophageal cancer Priority: Secondary Status: Chronic Qualifiers: Malignant neoplasm of esophagus location: unspecified location Qualified Code(s): C15.9 - Malignant neoplasm of esophagus, unspecified (3) Obesity Priority: Secondary Status: Chronic Qualifiers: Obesity type: due to excess calories Obesity severity: non-morbid Qualified Code(s): E66.09 - Other obesity due to excess calories (4) Diabetes Priority: Secondary Status: Chronic Qualifiers: Diabetes mellitus type: type 2 Diabetes mellitus complication status: with unspecified complications Diabetes mellitus residential insulin use: 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 Qualified Code(s): E11.8 - Type 2 diabetes mellitus with unspecified complications (5) Mitral stenosis Priority: Secondary Status: Chronic Qualifiers: Cardiac valve disease etiology: etiology unspecified Qualified Code(s): I05.0 - Rheumatic mitral stenosis (6) History of DVT (deep vein thrombosis) Priority: Secondary Status: Chronic (7) History of pulmonary embolism Priority: Secondary Status: Chronic - Discharge Medications Prescriptions: Nitroglycerin 0.4 mg SL Q5MIN PRN #30 tab.subl PRN Reason: Chest Pain Ipratropium/Albuterol Neb [Duoneb] 3 ml IH [id number] PRN 30 Days PRN Reason: wheezing Furosemide [Lasix] 20 mg PO BIDDIURETIC #60 tablet Isosorbide MONOnitrate (24 HR) [Imdur] 30 mg PO DAILY #30 tab.er.24h Metoprolol XL (24 HR) Succ [Toprol Xl] 25 mg PO DAILY #30 tab.er.24h Home Medications: Ascorbate Calcium [Vitamin C] 1,000 mg PO DAILY 09/19/16 [History] Aspirin [Ecotrin] 325 mg PO DAILY 09/19/16 [History] Cholecalciferol (D-3) [Vitamin D] 2,000 unit PO DAILY 09/19/16 [History] Gabapentin 600 mg PO QID 09/19/16 [History] Garlic [Garlique] 2,000 mcg PO TID 09/19/16 [History] Glimepiride 4 mg PO TID 09/19/16 [History] Glucosamn/Condroitn/C/Mn/[place] [Cvs Glucosamine Chondroit Cplt] 1 tab PO TID 02/28 [History] Multivit-Min/FA/Lycopen/Lutein [Men 50 Plus Multivitamin Tab] 1 tab PO DAILY 02/28 [History] Pantoprazole Sodium [Protonix] 40 mg PO DAILY 09/19/16 [History] Potassium Chloride [Klor-Con Sprinkle] 10 meq PO DAILY 09/19/16 [History] Pravastatin Sodium 40 mg PO HS 09/19/16 [History] Ranitidine HCl [Acid Team Cdl Driver] 300 mg PO HS 09/19/16 [History] Vitamin A 8,000 unit PO DAILY 09/19/16 [History] Oxygen 3 l NS AD 01/18/17 [History] Warfarin [Coumadin] 4 mg PO 1800 01/19/17 [History] Furosemide [Lasix] 20 mg PO BIDDIURETIC #60 tablet 01/21/17 [Rx] Ipratropium/Albuterol Neb [Duoneb] 3 ml IH [id number] PRN 30 Days 01/21/17 [Rx] Isosorbide MONOnitrate (24 HR) [Imdur] 30 mg PO DAILY #30 tab.er.24h 01/21/17 [ Rx] Metoprolol XL (24 HR) Succ [Toprol Xl] 25 mg PO DAILY #30 tab.er.24h 01/21/17 [ Rx] Nitroglycerin 0.4 mg SL Q5MIN PRN #30 tab.subl 01/21/17 [Rx] Allergies/Adverse Reactions: Allergies penicillin G Allergy (Verified 09/19/16 14:33) Anaphylaxis Procedures/tests Complete & Pending: Procedures Performed prior 72 hours Category Date Time Status NM jono perf SPECT multi [NM] Routine Exams 01/21/17 06:00 Taken ECG 12 lead ECG [ECG] Routine Y 01/19/17 10:10 Completed ECG 12 lead ECG [ECG] Routine Y 01/19/17 15:22 Completed EV echocardiogram Routine Y 01/19/17 18:02 Completed SP pharm nuclear stress Routine Y 01/21/17 06:00 Completed Date of admission: 01/19/17 17:58 Primary care physician: Paulina Morris CNP Discharging clinician: Analy James Anticipated date of discharge: 01/21/17 - Patient Status Disposition: Home, Self-Care Condition: Fair Functional capacity at discharge: independent ambulation Overall status at discharge: patient is progressing back to baseline - Discharge Instructions Follow Up With: Paulina Morris CNP [Primary Care Provider] - (Web request 01/18/17) Forms: ED Satisfaction Letter - Diet and Activity Activity: resume usual activities as tolerated, wear oxygen at all times Diet: diabetic diet, low fat, low cholesterol, low salt diet (Fluid restriction to 1.2 L per day) Hospital course: Mr. Garcia is a 66 year old male with the above medical problems, admitted with worsening dyspnea, intermittent chest pain, hypoxia. He was noted to be in acute CHF and started on IV diuretics, fluid restriction along with supplemental O2. Echocardiogram was done and shows preserved ejection fraction, mild left ventricular diastolic dysfunction, mild to moderate mitral stenosis, severe pulmonary hypertension. Cardiology was consulted and started beta- rhoda and nitrates and recommend nuclear stress test given his ongoing episodes of retrosternal chest pain. Stress test was negative for ischemia and infarct. Patient continued to require supplemental O2 via NC and does have only 2L/min at home, so new prescription for 3L/min continuous O2 via NC has been provided based on home O2 evaluation, he is mobile at home. Patient is otherwise medically stable for discharge. - Time Spent with Patient Total time spent providing and/or coordinating discharge services: Greater than 30 minutes (50 min) - Constitutional Vitals: Temp Pulse Resp BP Pulse Ox 98.0 F 71 18 123/76 97 01/21/17 15:24 01/21/17 15:24 01/21/17 15:24 01/21/17 15:24 01/21/17 15:24 General appearance: Present: A&O X 3, obese, answers questions appropriately - Respiratory Respiratory exam: Present: rales (Very faint crackles at bilateral bases). Absent: accessory muscle use, rhonchi, wheezes - Cardiovascular Cardiovascular exam: Present: RRR, +S1, +S2. Absent: diastolic murmur, gallop, rubs, systolic murmur
--- NOTE | 2017-01-23 17:09 | Internal Med Progress Note ---
Date of Encounter: 01/20/17 Time of Encounter: 13:00 - Assessment and plan (1) Congestive heart failure Status: Acute Assessment and plan: Improving slowly. Patient is noted to have appropriate urine output and weight loss, will switch Lasix to oral Lasix twice daily. Continue fluid restriction, urine output monitoring and daily weights. Continue supportive care and supplemental oxygen as needed. Patient is noted to be on home oxygen at 2 L/m via nasal cannula. Cardiology consult appreciated, given patient's continued episodes of chest pain, will be scheduled for nuclear medicine stress test tomorrow. We will hold nitroglycerin in anticipation of this. Has been started on beta rhoda and Imdur. Echocardiogram shows preserved ejection fraction, mild left ventricular diastolic dysfunction, mild to moderate mitral stenosis, severe pulmonary hypertension. Qualifiers: Congestive heart failure type: diastolic Congestive heart failure chronicity: acute on chronic Qualified Code(s): I50.33 - Acute on chronic diastolic (congestive) heart failure (2) Esophageal cancer Status: Chronic Assessment and plan: Follows with oncology as outpatient. Underwent surgery and radiation. Qualifiers: Malignant neoplasm of esophagus location: unspecified location Qualified Code(s): C15.9 - Malignant neoplasm of esophagus, unspecified (3) Obesity Status: Chronic Qualifiers: Obesity type: due to excess calories Obesity severity: non-morbid Qualified Code(s): E66.09 - Other obesity due to excess calories (4) Diabetes Status: Chronic Assessment and plan: Continue Accu-Chek blood glucose monitoring with sliding scale insulin. Diabetic diet. Blood sugars noted to be well controlled. Qualifiers: Diabetes mellitus type: type 2 Diabetes mellitus complication status: with unspecified complications Diabetes mellitus long term acute care registered nurse insulin use: without long term acute care registered nurse use Qualified Code(s): E11.8 - Type 2 diabetes mellitus with unspecified complications (5) Mitral stenosis Status: Chronic Qualifiers: Cardiac valve disease etiology: etiology unspecified Qualified Code(s): I05.0 - Rheumatic mitral stenosis (6) History of DVT (deep vein thrombosis) Status: Chronic Assessment and plan: Patient is noted to be on anticoagulation with Coumadin for history of DVT and PE. (7) History of pulmonary embolism Status: Chronic - Subjective Interval history: Improving shortness of breath. Improving episodes of retrosternal chest pain. Reports appropriate urine output. - Constitutional Vitals: Temp Pulse Resp BP Pulse Ox 98.0 F 71 18 123/76 97 01/21/17 15:24 01/21/17 15:24 01/21/17 15:24 01/21/17 15:24 01/21/17 16:58 General appearance: Present: A&O X 3, obese, answers questions appropriately - Respiratory Respiratory exam: Present: rales (Bibasilar crackles). Absent: accessory muscle use, rhonchi, wheezes - Cardiovascular Cardiovascular exam: Present: RRR, +S1, +S2. Absent: diastolic murmur, gallop, rubs, systolic murmur - GI/Abdominal GI/Abdominal exam: Present: normal bowel sounds, soft, no peritoneal signs. Absent: distended, tenderness - Extremities Exam Extremities exam: Present: full ROM, pedal edema, warm, radial pulses palpable and symetrical. Absent: calf tenderness, cyanotic Internal Medicine: Result - Labs CBC & Chem 7: 01/18/17 20:41 01/21/17 05:19 - ABG Interpretation ABG results: PT/INR, D-dimer PT 36.0 Seconds (9.4-12.1) H 01/21/17 05:19 D-Dimer 914 ng/mLFEU (0-500) H 01/18/17 20:41 Consult Discharge Plan - Plan Referrals: Paulina Morris CNP [Primary Care Provider] - (Web request 01/18/17) Prescriptions: Nitroglycerin 0.4 mg SL Q5MIN PRN #30 tab.subl PRN Reason: Chest Pain Ipratropium/Albuterol Neb [Duoneb] 3 ml IH [id number] PRN 30 Days PRN Reason: wheezing Furosemide [Lasix] 20 mg PO BIDDIURETIC #60 tablet Isosorbide MONOnitrate (24 HR) [Imdur] 30 mg PO DAILY #30 tab.er.24h Metoprolol XL (24 HR) Succ [Toprol Xl] 25 mg PO DAILY #30 tab.er.24h
[2017-01-24 10:31] VITALS: BP 123/76
== END 2017-01-21 17:45 | disposition home or self-care (01) | DRG 293 ==
LOC: 2ANU 19:01 → EMEROO 19:01 → SUATTDRO 22:06 → 2ANU 23:33
PROVIDERS: ADMIT Internal Medicine; ATTEND Internal Medicine